=== PATIENT | male | born 1960 | race Caucasian/White ===

== ENCOUNTER → 2020-10-31 | Outpatient (REF) ==
--- NOTE | 2020-10-31 11:37 | REPPI ---
INDICATION: DISABILITY DIAGNOSIS DETERMINATION KNEE PAIN COMPARISON: None. TECHNIQUE: Six views left knee. FINDINGS: There is no acute fracture or dislocation. There is moderate medial joint space narrowing with subchondral sclerosis and spurring. There is mild diffuse spurring of the patella. There is mild lateral patellofemoral compartment narrowing and subchondral sclerosis. 1 cm calcific body is seen in the anterior joint.There appears to be a small suprapatellar effusion. IMPRESSION: Arthritic changes as above. There is a 1 cm round calcific body in the anterior joint. Small effusion. <Electronically signed by Ky Heredia > 10/31/20 [id number]
--- NOTE | 2020-10-31 11:39 | REPPI ---
INDICATION: DISABILITY DIAGNOSIS DETERMINATION BACK PAIN. COMPARISON: None. TECHNIQUE: Three AP and lateral views lumbar spine. FINDINGS: There is no compression fracture or malalignment. There is normal lumbar lordosis. There is mild spurring of L3 through S1. There is mild disc space narrowing and subchondral sclerosis at L3-4 and L4-5 with moderate narrowing and sclerosis at L5-S1. Sclerosis and spurring is noted at the facet joints of L5-S1. The posterior elements are intact. IMPRESSION: Degenerative changes as discussed above. <Electronically signed by Ky Heredia > 10/31/20 [id number]
== END ==
LOC: M PLAIMG 08:24
PROVIDERS: ATTEND Internal Medicine
DX: Z02.9 Encounter for administrative examinations, unspecified (principal)

== ENCOUNTER → 2020-11-29 | Outpatient (REF) | payer OTHER ==
[2020-11-29 14:32] LABS: BACTERIA, URINE AUTO NEGATIVE (NEGATIVE); MUCUS, URINE SMALL (NEGATIVE); RBC, URINE AUTO 0 /HPF (0-3); SQUAMOUS EPITHELIAL CELL UR AU 0 /HPF (0-6); WBC, URINE AUTO 0 /HPF (0-3)
== END ==
LOC: M SMT 13:09
PROVIDERS: ATTEND Specialist
DX: N40.0 Benign prostatic hyperplasia without lower urinary tract symptoms (principal)